=== PATIENT | male | born 1970 | race Caucasian/White ===

== ENCOUNTER 2018-03-11 06:02 | Day surgery (SDC) | payer OTHER ==
[2018-03-11] MEDS ORDERED: PROPOFOL 40 ML (07:39)
[2018-03-11] MEDS ORDERED: LIDOCAINE 2% (SDV) 5 ML INJ (07:41)
[2018-03-11] MEDS ORDERED: CIPROFLOXACIN 400MG/D5W 200 ML (08:13)
== END 2018-03-11 16:11 | disposition home or self-care (01) ==
LOC: GIL 06:02
DX: K29.50 Unspecified chronic gastritis without bleeding (principal); I85.00 Esophageal varices without bleeding; K31.89 Other diseases of stomach and duodenum; K29.80 Duodenitis without bleeding; I10 Essential (primary) hypertension
CPT/HCPCS: 43239; 88305; 88312